=== PATIENT | female | born 1990 | race Caucasian/White ===

== ENCOUNTER 2020-03-21 07:21 | Emergency (ER) | payer OTHER ==
[2020-03-21 07:32] VITALS: BMI 25.8
[2020-03-21] MEDS ORDERED: SODIUM CHLORIDE 0.9% 500 ML INFUS.BAG IV ONE (08:14)
[2020-03-21] MEDS ORDERED: ACETAMINOPHEN 1000 MG/100 ML VIAL (NON FORMULARY) IVPB ONE (08:14)
[2020-03-21] MEDS ORDERED: METOCLOPRAMIDE HCL INJECTION 10 MG/2 ML VIAL IVPUSH ONE (08:14)
[2020-03-21] MEDS ORDERED: SODIUM CHLORIDE 2,177 ML IV ONE (08:17)
[2020-03-21] MEDS ORDERED: METOCLOPRAMIDE HCL INJECTION 10 MG/2 ML VIAL ONE (08:24)
[2020-03-21] MEDS ORDERED: ACETAMINOPHEN INJECTION 100 ML IVPB ONE (08:24)
[2020-03-21 09:09] LABS: BASO % 0.4 % (0-2.0); EOS % 0.1 % (0-4.5); HEMATOCRIT 37.5 % (32.4-45.2); HEMOGLOBIN 12.5 GM/dL (10.7-15.3); LYMPH % 12.3 % (8-40); MCH 28.1 pg (25.7-33.7); MCHC 33.3 g/dl (32.0-36.0); MEAN CELL VOLUME 84.4 fl (80-96); MEAN PLT VOLUME 9.9 fl (7.5-11.1); MONO % 15.9 % (3.8-10.2); NEUT % 71.3 % (42.8-82.8); PLATELET COUNT 171 K/MM3 (134-434); RBC 4.44 M/mm3 (3.60-5.2); RDW 14.5 % (11.6-15.6); VENOUS BASE EXCESS -1.2 mmol/L (-2-2); VENOUS O2 SATURATION 47.6 % (70-80); VENOUS PCO2 34.8 mmHg (38-52); VENOUS PH 7.429 (7.310-7.410); WHITE BLOOD COUNT 10.5 K/mm3 (4.0-10.0)
[2020-03-21 09:18] LABS: INR 1.25 (0.83-1.09); PROTHROMBIN TIME (PATIENT) 15.3 SEC (9.7-13.0)
[2020-03-21 09:21] LABS: ACTIVATED PTT 31.2 SECONDS (25.2-36.5); CHLORIDE 98 mmol/L (98-107); POTASSIUM 4.1 mmol/L (3.5-5.1); SODIUM 131 mmol/L (136-145)
[2020-03-21] MEDS ORDERED: diazePAM CARPU-JECT 10 MG/2 ML DISP.SYRIN IVPUSH ONE (09:23)
[2020-03-21 09:24] LABS: ALBUMIN 2.9 g/dl (3.4-5.0); ANION GAP 7 MMOL/L (8-16); BLOOD UREA NITROGEN 6.9 mg/dL (7-18); CALCIUM 8.5 mg/dL (8.5-10.1); CO2 25 mmol/L (21-32); GLUCOSE,RANDOM 97 mg/dL (74-106)
[2020-03-21 09:27] LABS: BILIRUBIN,DIRECT 0.5 mg/dL (0.0-0.2); CREATININE 0.9 mg/dL (0.55-1.3); SGOT/AST 37 U/L (15-37); SGPT/ALT 45 U/L (13-61)
[2020-03-21 09:29] LABS: BILIRUBIN,TOTAL 0.8 mg/dL (0.2-1); TOT PROT 6.8 g/dl (6.4-8.2)
[2020-03-21 09:30] LABS: ALK PHOS 150 U/L (45-117)
[2020-03-21 09:31] LABS: LDH 225 U/L (84-246)
[2020-03-21] MEDS ORDERED: diazePAM CARPU-JECT 10 MG/2 ML DISP.SYRIN ONE (09:34)
[2020-03-21 10:50] VITALS: TEMP 99.3
[2020-03-21 12:42] VITALS: BP 111/75; PULSE 100
== END 2020-03-21 13:51 | disposition short-term general hospital (02) ==
LOC: JER 07:21
PROC: 3E0333Z Introduction of Anti-inflammatory into Peripheral Vein, Percutaneous Approach (ICD-10-PCS; principal; 2020-03-21)
PROC: 3E033GC Introduction of Other Therapeutic Substance into Peripheral Vein, Percutaneous Approach (ICD-10-PCS; 2020-03-21)
PROC: 3E033GC Introduction of Other Therapeutic Substance into Peripheral Vein, Percutaneous Approach (ICD-10-PCS; 2020-03-21)
DX: R50.9 Fever, unspecified (principal); R11.0 Nausea; R51.9 Headache, unspecified; B34.9 Viral infection, unspecified
CPT/HCPCS: 36415; 70450-TC; 71045-TC-FY; 80053; 80307; 82248; 82550; 82728; 82803; 83605; 83615; 84484; 84703; 85025; 85610; 85730; 86140; 87040; 87804; 93005; 93010; 99285-25; C9803; J0131; U0003